=== PATIENT | male | born 1985 | race Caucasian/White ===

== ENCOUNTER 2017-11-16 21:28 | Emergency (ER) | payer BC, OTHER ==
[~2017-11-16] VITALS: Ht 188 cm; Wt 95.3 kg
[2017-11-16] MEDS ORDERED: HYDROcodone/APAP 5 MG/325 MG (LORTAB) TAB ONE (21:53)
[2017-11-16] MEDS ORDERED: LIDOCAINE 2% 20 ML (XYLOCAINE) VIAL ONE (21:54)
[2017-11-16] MEDS ORDERED: TRIM/SULFAMETH 160/800 (SEPTRA DS) TAB PO ONE ×2 (21:54→22:30)
[2017-11-16] MEDS ORDERED: HYDR-757 PO (22:27)
[2017-11-16] MEDS ORDERED: SULF1TAB35 PO (22:27)
[2017-11-16] MEDS ORDERED: METR500T PO (22:27)
--- NOTE | 2017-11-16 22:28 | ED Integumentary General ---
General Chief Complaint: Skin/Wound Problems Stated Complaint: ABSCESS LOWER BACK Nursing Triage Note: PT C/O PYLONIDAL CYST X 4 DAYS. PT DENIES FEVER OR ANY OTHER S/S. Source: patient Exam Limitations: no limitations History of Present Illness Date Seen by Provider: Nov 16, 2017 Time Seen by Provider: 22:23 Initial Comments To ER with complaints of abscess to the top of the gluteal cleft for the past 2- 3 days with some drainage. He's never had this before. No fevers or chills. He is a pharmacist at [employer]. Timing/Duration: constant Severity: moderate Allergies and Home Medications Allergies Coded Allergies: No Known Drug Allergies (Unverified , 11/16/17) Constitutional: see HPI EENTM: see HPI Respiratory: no symptoms reported Cardiovascular: no symptoms reported Genitourinary: no symptoms reported Musculoskeletal: no symptoms reported Skin: see HPI Psychiatric/Neurological: No Symptoms Reported Endocrine: No Symptoms Reported Hematologic/Lymphatic: No Symptoms Reported Past Mehjwak-Kwdktr-Malbss Hx Patient Social History Alcohol Use: Occasionally Uses Recreational Drug Use: No Smoking Status: Never a Smoker 2nd Hand Smoke Exposure: No Recent Foreign Travel: No Contact w/Someone Who Travel: No Recent Infectious Disease Expo: No Recent Hopitalizations: No Seasonal Allergies Seasonal Allergies: No Surgeries History of Surgeries: Yes Surgeries: Tonsillectomy Physical Exam Vital Signs Vital Signs - First Documented 11/16/17 21:37 Temp 97.2 Pulse 74 Resp 16 B/P (MAP) 138/79 (98) Pulse Ox 99 O2 Delivery Room Air Capillary Refill : Less Than 3 Seconds General Appearance: WD/WN, no apparent distress HEENT: PERRL/EOMI, normal ENT inspection Neck: non-tender, full range of motion Respiratory: no respiratory distress, no accessory muscle use Gastrointestinal: normal bowel sounds, non tender Neurologic/Psychiatric: alert, normal mood/affect, oriented x 3 Skin: normal color, warm/dry Skin Problem Location: other (superior aspect of the gluteal cleft there is fluctuance with surrounding induration.) Skin Problem Character: abscess I&D : Blade Size: 11 Packing/Drain: 1/2 Ludmila Drain Progress Anesthetized with a total of 1 mL of 2% lidocaine without epinephrine. Wound then opened with an 11 blade scalpel. Large amount of foul-smelling purulent material expressed. He then irrigated with Betadine/saline solution. And a Salem drain 1/4 inch was placed and sutured in place with a single suture size 4-0 Prolene. Covered with gauze. Progress/Results/Core Measures Results/Orders My Orders Orders - ASHUTOSH MEYER APRN Hydrocodone/Apap 5/325 Tablet (Lortab 5 (11/16/17 21:53) Sulfamethoxazole/Trimet Ds Tab (Bactrim (11/16/17 21:54) Lidocaine 2% Injection 20 Ml (Xylocaine (11/16/17 21:54) Wound Culture (11/16/17 22:21) Sulfamethoxazole/Trimet Ds Tab (Bactrim (11/16/17 22:30) Metronidazole Tablet (Flagyl Tablet) (11/16/17 22:30) Hydrocodone/Apap 5/325 Tablet (Lortab 5 (11/16/17 22:30) Lidocaine 2% Injection 20 Ml (Xylocaine (11/16/17 22:30) Medications Given in ED Current Medications Medications Dose Ordered Sig/Aurea Route Start Time Stop Time Status Last Admin Dose Admin Acetaminophen/ Hydrocodone Bitart 1 tab STK-MED ONCE .ROUTE 11/16/17 21:53 11/16/17 21:56 DC 11/16/17 22:17 1 TAB Lidocaine HCl 20 ml STK-MED ONCE .ROUTE 11/16/17 21:54 11/16/17 21:57 DC 11/16/17 22:10 20 ML Trimethoprim/ Sulfamethoxazole 1 ea STK-MED ONCE PO 11/16/17 21:54 11/16/17 21:56 DC 11/16/17 22:17 1 EA Vital Signs/I&O Vital Sign - Last 12Hours 11/16/17 21:37 Temp 97.2 Pulse 74 Resp 16 B/P (MAP) 138/79 (98) Pulse Ox 99 O2 Delivery Room Air Blood Pressure Mean: 98 Departure Impression Impression: Primary Impression: Pilonidal sinus with abscess Disposition: 01 HOME, SELF-CARE Condition: Stable Departure-Patient Inst. Decision time for Depature: 22:25 Referrals: LAUREL ROSARIO MD (PCP/Family) Primary Care Physician SHAMIKA LIEBERMAN MD Patient Instructions: Pilonidal Cyst Add. Discharge Instructions: 1. Antibiotics as directed 2. Pain medication as a 3. You may shower with the drain in place. Return to the emergency room in about 5 days to have the Salem drain stitch clipped and the drain removed. Expect to have some continued drainage over the next couple of days which should reduce day by day. Return to ER for any fevers or sign of worsening infection. If your culture indicates need for different antibiotic we would call you in that antibiotic. All discharge instructions reviewed with patient and/or family. Voiced understanding. Scripts Hydrocodone/Acetaminophen ([place] 5-325 Tablet) 1 Each Tablet 1 EACH PO Q4H Y for PAIN-MODERATE TO SEVERE, #20 TAB Prov: ASHUTOSH MEYER APRN 11/16/17 Metronidazole (Flagyl) 500 Mg Tablet 500 MG PO TID, #21 TAB Prov: ASHUTOSH MEYER APRN 11/16/17 Sulfamethoxazole/Trimethoprim (Bactrim Ds Tablet) 1 Each Tablet 1 EACH PO BID, #14 TAB Prov: ASHUTOSH MEYER APRN 11/16/17 Copy Copies To 1: LAUREL ROSARIO MD; SHAMIKA LIEBERMAN MD, PETER J APRN Nov 16, 2017 22:28
[2017-11-16] MEDS ORDERED: metroNIDAZOLE 500 MG (FLAGYL) TAB PO ONE (22:30)
[2017-11-16] MEDS ORDERED: LIDOCAINE 2% 20 ML (XYLOCAINE) VIAL INJ ONE (22:30)
[2017-11-16] MEDS ORDERED: HYDROcodone/APAP 5 MG/325 MG (LORTAB) TAB PO ONE (22:30)
[2017-11-16 22:35] VITALS: BP 138/79
== END 2017-11-16 22:35 | disposition home or self-care (01) ==
LOC: ER 21:32
DX: L05.01 Pilonidal cyst with abscess (principal); Z90.89 Acquired absence of other organs
CPT/HCPCS: 87070; 87205

== ENCOUNTER 2017-11-21 16:16 | Emergency (ER) | payer BC ==
[~2017-11-21] VITALS: Ht 188 cm; Wt 123.4 kg
[~2017-11-21 16:16] MED LIST: HYDR-757 PO; METR500T PO; SULF1TAB35 PO
--- NOTE | 2017-11-21 16:43 | ED Suture Removal/Wound Check ---
Suture/Wound Re-check General Appearance: WD/WN, no apparent distress Skin Exam: normal color, warm/dry Physical Exam Vital Signs Vital Signs - First Documented 11/21/17 16:30 Pulse 78 Resp 18 B/P (MAP) 134/89 Pulse Ox 98 Capillary Refill : General Appearance: WD/WN, no apparent distress HEENT: PERRL/EOMI, normal ENT inspection Neck: non-tender, full range of motion Respiratory: no respiratory distress, no accessory muscle use Gastrointestinal: normal bowel sounds, non tender Extremities: normal range of motion, non-tender Neurologic/Psychiatric: alert, normal mood/affect Skin: normal color, warm/dry Skin Problem Character: abscess, other (there is a Ludmila drain in place to the superior aspect gluteal cleft. There is a bit of serosanguineous drainage from this still. The suture was clipped that was holding the Ludmila in place, Ludmila was removed and covered with gauze. No erythema to suggest cellulitis.) Departure Impression Impression: Primary Impression: Pilonidal cyst with abscess Disposition: 01 HOME, SELF-CARE Condition: Stable Departure-Patient Inst. Decision time for Depature: 16:43 Referrals: LAUREL ROSARIO MD (PCP/Family) Primary Care Physician Patient Instructions: Pilonidal Cyst Add. Discharge Instructions: 1. Return to ER for any concerns 2. Follow-up with your doctor next week All discharge instructions reviewed with patient and/or family. Voiced understanding. ASHUTOSH MEYER APRN Nov 21, 2017 16:43
[2017-11-21 16:45] VITALS: BP 134/89
== END 2017-11-21 16:45 | disposition home or self-care (01) ==
LOC: EDUNIT# 16:16 → ER 16:17
DX: L05.01 Pilonidal cyst with abscess (principal)

== ENCOUNTER 2017-12-31 05:35 | Outpatient (CLI) | payer BC ==
[~2017-12-31] VITALS: Ht 188 cm; Wt 123.4 kg
[2017-12-31] MEDS ORDERED: MULT-35 PO (11:11)
[2017-12-31] MEDS ORDERED: VITA1CAP PO (11:11)
== END 2017-12-31 11:12 ==
LOC: PREOP 05:35
PROVIDERS: ATTEND Surgery
DX: Z01.818 Encounter for other preprocedural examination (principal); L05.91 Pilonidal cyst without abscess

== ENCOUNTER 2018-01-09 06:36 | Day surgery (SDC) | payer BC ==
[~2018-01-09] VITALS: Ht 188 cm; Wt 123.4 kg
[~2018-01-09 06:36] MED LIST changes: +MULT-35 PO; +VITA1CAP PO
[2018-01-09] MEDS ORDERED: ceFAZolin INJECTION 1,000 MG in NS (IVPB) 100 ML IV ONE (06:45)
[2018-01-09 06:50] VITALS: BP 125/83
[2018-01-09] MEDS ORDERED: LACTATED RINGERS 1,000 ML IV PRN (07:06)
[2018-01-09] MEDS ORDERED: ONDANSETRON 4 MG/2 ML (SDV) Z0FRAN ONE ×2 (07:15→08:22)
[2018-01-09] MEDS ORDERED: FAMOTIDINE 20MG/2ML IV (PEPCID) IV ONE (07:15)
[2018-01-09] MEDS ORDERED: ONDANSETRON 4 MG/2 ML (SDV) Z0FRAN IV ONE (07:15)
[2018-01-09] MEDS ORDERED: FAMOTIDINE 20MG/2ML IV (PEPCID) ONE (07:16)
[2018-01-09] MEDS: LACTATED RINGERS 1,000 ML IV PRN ×2 (07:29→09:30)
[2018-01-09] MEDS ORDERED: BUP/EPI 0.5% 1:200,000 (SENSORCAINE) 30 ML VIAL ONE (07:38)
--- NOTE | 2018-01-09 07:51 | Progress Note-Pre Operative ---
Pre-Operative Progress Note H&P Reviewed The H&P was reviewed, patient examined and no changes noted. Date Seen by Provider: Jan 09, 2018 Time Seen by Provider: 07:40 Date H&P Reviewed: Jan 09, 2018 Time H&P Reviewed: 07:45 Pre-Operative Diagnosis: Pilonidal Cyst TANISHA ESTRADA APRN Jan 09, 2018 7:51 am
[2018-01-09] MEDS ORDERED: morphine INJ 10 MG/ML 1ML (SYR OR VIAL) IVP PRN ×2 (08:00→10:45)
[2018-01-09] MEDS ORDERED: ONDANSETRON 4 MG/2 ML (SDV) Z0FRAN IVP PRN ×2 (08:00→10:45)
[2018-01-09] MEDS ORDERED: HYDROcodone/APAP 5 MG/325 MG (LORTAB) TAB PO ONE (08:00)
[2018-01-09] MEDS ORDERED: ACETAMINOPHEN 325 MG TABLET PO PRN (08:00)
[2018-01-09] MEDS ORDERED: LIDOCAINE PF 2% 5 ML (XYLOCAINE) VIAL ONE (08:22)
[2018-01-09] MEDS ORDERED: NEOSTIGMINE 1 MG/ML 5 ML SYRINGE ONE ×2 (08:22→10:04)
[2018-01-09] MEDS ORDERED: DEXAMETHASONE 10 MG/ML (DECADRON) 1 ML VIAL ONE (08:22)
[2018-01-09] MEDS ORDERED: ROCURONIUM 10 MG/ML 5 ML SYRINGE IV ONE (08:22)
[2018-01-09] MEDS ORDERED: SEVOFLURANE (ULTANE) 15 ML INHAL SOLN ONE (08:22)
[2018-01-09] MEDS ORDERED: proPOfol 200 MG/20 ML (DIPRIVAN) VIAL IV ONE (08:22)
[2018-01-09] MEDS ORDERED: GLYCOPYRROLATE 0.2 MG/ML (ROBINUL) 2 ML VIAL ONE ×2 (08:22→10:04)
[2018-01-09] MEDS ORDERED: MIDAZOLAM 2 MG/2 ML (VERSED) VIAL ONE (08:23)
[2018-01-09] MEDS ORDERED: fentaNYL INJECTION 250 MCG/5 ML AMP ONE (08:23)
[2018-01-09] MEDS ORDERED: BUP/EPI 0.5% 1:200,000 (SENSORCAINE) 30 ML VIAL INJ ONE (09:45)
--- NOTE | 2018-01-09 10:26 | Progress Note-Post Operative ---
Post-Operative Progess Note Surgeon (s)/Painter [employer] (s) Surgeon JOAQUINA CHEATHAM MD Painter Structural Steel: reji puentes LAY OUT FORMER Pre-Operative Diagnosis Pilonidal Cyst Post-Operative Diagnosis sane Procedure & Operative Findings Date of Procedure 01/09/18 Procedure Performed/Findings excision pilonidal cyst with intermediate flap closure. Anesthesia Type GET Estimated Blood Loss Estimated blood loss (mL): minimal Specimens/Packing Specimens Removed pilonidal cyst JOAQUINA CHEATHAM MD Jan 09, 2018 10:26 am
[2018-01-09] MEDS ORDERED: HYDR-34 PO (10:27)
--- NOTE | 2018-01-09 10:28 | Discharge Inst-Surgical ---
D/C Lap Instructions-CHAPARRITA New, Converted, or Re-Newed RX: RX on Chart Follow Up Appt in 2 weeks Activity as tolerated No driving for 24 hours No driving while on pain medications Incentive Spirometry use every 2 hours while awake Regular Diet Symptoms to Report: Fever over 101 degree F, Nausea/Vomiting Infection Signs and Symptoms to report: Increased redness, Foul odor of wound, Increased drainage Bathing instructions: May shower Operative Area Clean/Dry; Keep incision clean/dry If any problems/questions: Contact your physician or go to Emergency Room JOAQUINA CHEATHAM MD Jan 09, 2018 10:28 am
--- NOTE | 2018-01-09 10:40 | Anesthesia-General Post-Op ---
General Patient Condition Mental Status/LOC: Same as Preop Cardiovascular: Satisfactory Nausea/Vomiting: Absent Respiratory: Satisfactory Pain: Controlled Complications: Absent Post Op Complications Complications None Follow Up Care/Instructions Patient Instructions None needed. Anesthesia/Patient Condition Patient Condition Patient is doing well, no complaints, stable vital signs, no apparent adverse anesthesia problems. No complications reported per nursing. D/C home per [facility] Criteria: No JOLIE SIU CRNA Jan 09, 2018 10:40
[2018-01-09] MEDS ORDERED: HYDROmorphone 2 MG/ML VIAL (DILAUDID) IVP PRN (10:45)
[2018-01-09 11:30] VITALS: BP 118/82
[2018-01-09] MEDS ORDERED: HYDROcodone/APAP 5 MG/325 MG (LORTAB) TAB ONE (11:47)
[2018-01-09 12:00] VITALS: BP 113/76
[2018-01-09 12:30] VITALS: BP 109/76
--- NOTE | 2018-01-09 12:45 | Anesthesia-General Post-Op ---
General Patient Condition Mental Status/LOC: Same as Preop Cardiovascular: Satisfactory Nausea/Vomiting: Absent Respiratory: Satisfactory Pain: Controlled Complications: Absent Post Op Complications Complications None Follow Up Care/Instructions Patient Instructions None needed. Anesthesia/Patient Condition Patient Condition Patient is doing well, no complaints, stable vital signs, no apparent adverse anesthesia problems. No complications reported per nursing. D/C home per [facility] Criteria: No JOLIE SIU CRNA Jan 09, 2018 12:45
--- NOTE | 2018-01-09 18:17 | OPERATIVE REPORT ---
DATE OF SERVICE: 01/09/2018 ATTENDING PRIMARY CARE PHYSICIAN: Christin Martinez MD PREOPERATIVE DIAGNOSIS: Symptomatic pilonidal cyst. POSTOPERATIVE DIAGNOSIS: Symptomatic pilonidal cyst. PROCEDURE: Excision of complex pilonidal cyst with intermediate flap reconstruction 4 cm in size. SURGEON: Joaquina Cheatham MD DIRECTOR ORANGE: Abhijeet Burton APRN ANESTHESIA: General endotracheal. ESTIMATED BLOOD LOSS: Minimal. FINDINGS: Multiple small tracts, which were deep within the overlying the sacrum. No acute infection. DISPOSITION: The patient tolerated procedure well. INDICATIONS: The patient is a 32-year-old male, who reports that he has had pain and swelling in the intergluteal cleft for several years; however, in the past few months, he has had a significant amount of redness, irritation as well as purulent drainage. The pain and swelling worsened and he was seen in the Emergency Department where an abscess was identified in the intergluteal cleft consistent with a pilonidal abscess. He underwent an incision and drainage at that time and placed on antibiotics. Since that time, the infection is cleared. There are 2 small sinus openings identified consistent with a chronic pilonidal cyst. DESCRIPTION OF PROCEDURE: The patient was brought to the operating room, laid supine on the table. After adequate IV pain sedative medications and general endotracheal intubation, the patient was placed in prone position. The back and perineum were then prepped and draped in standard surgical fashion. DICTATION ENDS HERE. Job ID: [id number] DocumentID: [id number] Dictated Date: 01/09/2018 10:40:26 Computer Science Instructor Date: 01/09/2018 18:15:56 Dictated By: JOAQUINA CHEATHAM MD [facility]
--- NOTE | 2018-01-09 19:05 | OPERATIVE REPORT ---
DATE OF SERVICE: 01/09/2018 CONTINUATION OF AN OPERATIVE REPORT DESCRIPTION OF PROCEDURE: The pilonidal fistulous tracts were probed using lacrimal probes and met in the center overlying the sacrum, which was relatively deep. A skin incision approximately 4 cm in size was then measured out off center. The area was then anesthetized using 0.5% Marcaine with epinephrine. A skin incision was made using a 15 blade and the entire cyst tracts as well as the pilonidal abscess where the lacrimal probes ended overlying the sacrum were then completely dissected out using blunt dissection as well as electrocautery until all clean subcutaneous fat and overlying fascia was identified. This was sent to pathology. Good hemostasis was observed. We then proceeded with a lateral flap creation using electrocautery. The fascial subcutaneous flap was then reapproximated using 2-0 Vicryl interrupted sutures. Subcutaneous tissue underneath the dermis was then approximated using 3-0 Vicryl interrupted sutures. Skin was then closed using 3-0 nylon interrupted sutures. The wound was then cleaned and covered with sterile gauze. The patient tolerated the procedure well. We will start IV and oral pain medication as well as a clear liquid diet. Once he is tolerating clears, has good pain control with oral pain medications and is ambulating well, we will discharge him home. He will be instructed to do no heavy lifting or exertion for the next two weeks and to keep the area clean and dry at all times. Job ID: [id number] DocumentID: [id number] Dictated Date: 01/09/2018 10:43:58 Molder Sweep Date: 01/09/2018 19:04:58 Dictated By: JOAQUINA CHEATHAM MD
== END 2018-01-09 12:50 | disposition home or self-care (01) ==
LOC: SDC 06:36
PROVIDERS: ATTEND Surgery
DX: L05.91 Pilonidal cyst without abscess (principal); Z79.82 Long term (current) use of aspirin
CPT/HCPCS: 87081; 88304

== ENCOUNTER 2021-11-04 01:17 | Emergency (ER) | payer BC ==
[~2021-11-04] VITALS: Ht 185 cm; Wt 120.0 kg
[~2021-11-04 01:17] MED LIST changes: +HYDR-34 PO; +HYDR-4226 PO; -HYDR-757 PO; -SULF1TAB35 PO; +SULF1TAB38 PO
[2021-11-04] MEDS ORDERED: ONDANSETRON 4 MG (ZOFRAN) ORAL DISSOLVE TAB SL STA (01:34)
[2021-11-04 01:52] LABS: CLARITY,URINE CLEAR; COLOR,URINE YELLOW; GLUCOSE, URINE (UA) NEGATIVE (NEGATIVE); KETONES,URINE NEGATIVE (NEGATIVE); LEUKOCYTE ESTERASE ,URINE NEGATIVE (NEGATIVE); NITRITE,URINE NEGATIVE (NEGATIVE); PROTEIN,URINE 1+ (NEGATIVE)
[2021-11-04 01:54] LABS: BACTERIA,URINE TRACE /HPF; BILIRUBIN,URINE NEGATIVE (NEGATIVE); RBC,URINE 25-50 /HPF; WBC,URINE 0-2 /HPF
[2021-11-04] MEDS ORDERED: LACTATED RINGERS 1,000 ML IV ONE (02:00)
[2021-11-04] MEDS ORDERED: KETOROLAC 30 MG/ML VIAL IVP ONE (02:00)
[2021-11-04 02:20] LABS: HEMATOCRIT 43 % (40-54); MEAN CORPUSCULAR HEMOGLOBIN 30 pg (25-34); MEAN CORPUSCULAR HGB CONC 35 g/dL (32-36); MEAN CORPUSCULAR VOLUME 87 fL (80-99); MEAN PLATELET VOLUME 10.5 fL (9.0-12.2); PLATELET COUNT 274 10^3/uL (130-400); WHITE BLOOD COUNT 11.4 10^3/uL (4.3-11.0)
[2021-11-04 02:28] LABS: POTASSIUM 3.7 MMOL/L (3.6-5.0)
[2021-11-04 02:29] LABS: CALCIUM 9.5 MG/DL (8.5-10.1)
[2021-11-04 02:33] LABS: CREATININE SERUM 0.93 MG/DL (0.60-1.30)
[2021-11-04] MEDS ORDERED: ACHD5005 PO (02:55)
[2021-11-04] MEDS ORDERED: ONDA4TAB11 SL (02:55)
--- NOTE | 2021-11-04 02:55 | ED Back Pain ---
General Chief Complaint: Back Problems Stated Complaint: LEFT SIDE BACK PAIN Nursing Triage Note: PT AMB TO ED BY POV WITH C/O MIDDLE/LOWER LEFT SIDED BACK PAIN BEGINNING 2300 TONIGHT. PT REPORTS HE WENT TO BED APPROX 2200, WOKE UP AT 2300 WITH LEFT SIDED BACK PAIN. PAIN WORSE WITH MOVEMENT, DOES NOT RADIATE. RATES PAIN 5/10, 7-8/10 WITH MOVEMENT. DENIES FEVER, INJURY, PAIN OR DIFFICULTY URINATING. HAS NOT TAKEN ANYTHING FOR PAIN. Source of Information: Patient Exam Limitations: No Limitations History of Present Illness Date Seen by Provider: Nov 04, 2021 Time Seen by Provider: 01:30 Initial Comments This 36-year-old gentleman presents to the emergency room with left lower back pain that woke him around 2300. He has associated nausea. Pain does not radiate to any other area. He has nausea without vomiting. He denies any history of kidney stones or prior episodes of this type of pain. Pain is waxing and waning and does seem to be somewhat dependent upon position. He has not noted any urinary changes. Allergies and Home Medications Allergies Coded Allergies: No Known Drug Allergies (Unverified , 12/31/17) Patient Home Medication List Home Medication List Reviewed: Yes Hydrocodone Bit/Acetaminophen (Lortab 7.5 Mg Tablet) 1 Ea Tablet, 1-2 EACH PO Q4H Prescribed by: JOAQUINA CHEATHAM on 01/09/18 1027 Hydrocodone/Acetaminophen (Hydrocodone-Acetamin 5-325 mg) 1 Each Tablet, 1 TAB PO Q4H PRN for PAIN-MODERATE (5-7) Prescribed by: ELISHA HUMPHREY on 11/04/21 0256 Multivitamin (Daily Multiple Vitamin) 1 Each Tablet, 1 EACH PO DAILY, (Reported) Entered as Reported by: BUCKY COSTA on 12/31/17 1111 Ondansetron (Ondansetron Odt) 4 Mg Tab.rapdis, 4 MG SL Q4H PRN for NAUSEA/VOMITING Prescribed by: ELISHA HUMPHREY on 11/04/21 0255 Vitamin B Complex (Vitamin B Complex) 1 Each Capsule, 1 EACH PO BIDPC, (Reported) Entered as Reported by: BUCKY COSTA on 12/31/17 1111 Review of Systems Constitutional: no symptoms reported EENTM: no symptoms reported Respiratory: no symptoms reported Cardiovascular: no symptoms reported Gastrointestinal: see HPI Genitourinary: see HPI Musculoskeletal: see HPI Skin: no symptoms reported Psychiatric/Neurological: No Symptoms Reported Past Hsoeotz-Rseqrt-Tlxkuv Hx Patient Social History Tobacco Use?: No Use of E-Cig and/or Vaping dev: No Substance use?: No Alcohol Use?: Yes Alcohol type: Beer Alcohol Frequency: Couple times a week Pt feels they are or have been: No Immunizations Up To Date Tetanus Booster (TDap): Unknown PED Vaccines UTD: No Influenza Vaccine Up-to-Date: Yes; Up-to-Date First/Initial COVID19 Vaccinat: 2020 Second COVID19 Vaccination Gerry: 2020 Third COVID19 Vaccination Date: AUG 2021 COVID19 Vaccine Primer Inserting Machine Operator: Kup[place] Seasonal Allergies Seasonal Allergies: No Past Medical History Surgery/Hospitalization HX: HTN Surgeries: Yes (Pilonidal cyst resection) Tonsillectomy Respiratory: No Cardiac: Yes Hypertension Neurological: No Reproductive Disorders: No Sexually Transmitted Disease: No HIV/AIDS: No Genitourinary: No Gastrointestinal: No Musculoskeletal: No Endocrine: No HEENT: No Loss of Vision: Bilateral Hearing Impairment: Denies Cancer: No Psychosocial: No Integumentary: No Adverse Reaction/Blood Tranf: No (N/A) Family Medical History Cancer (sister, renal cell carcinoma) Physical Exam Vital Signs Vital Signs - First Documented 11/04/21 01:24 Temp 36.5 Pulse 80 Resp 18 B/P (MAP) 158/101 (120) Pulse Ox 100 O2 Delivery Room Air Capillary Refill : Less Than 3 Seconds Height, Weight, BMI Height: 6'2.00" Weight: 272lbs. 0.0oz. 123.608777kq; 35.00 BMI Method:Stated General Appearance: No Apparent Distress, WD/WN, Obese HEENT: Normal ENT Inspection Neck: Normal Inspection Cardiovascular: Regular Rate, Rhythm, No Edema, No Murmur Respiratory: Lungs Clear, Normal Breath Sounds, No Accessory Muscle Use Gastrointestinal: Non Tender, Soft Back: Normal Inspection, Other (Slight tenderness just lateral to the left upper lumbar spine) Extremity: Normal Inspection, No Pedal Edema Neurologic/Psychiatric: Alert, Oriented x3, Normal Mood/Affect Skin: Normal Color, Warm/Dry Progress/Results/Core Measures Results/Orders Lab Results Laboratory Tests Test 11/04/21 01:28 11/04/21 02:05 Range/Units Urine Color YELLOW Urine Clarity CLEAR Urine pH 6.0 5-9 Urine Specific Palms >=1.030 1.016-1.022 Urine Protein 1+ H NEGATIVE Urine Glucose (UA) NEGATIVE NEGATIVE Urine Ketones NEGATIVE NEGATIVE Urine Nitrite NEGATIVE NEGATIVE Urine Bilirubin NEGATIVE NEGATIVE Urine Urobilinogen 0.2 < = 1.0 MG/DL Urine Leukocyte Esterase NEGATIVE NEGATIVE Urine RBC (Auto) 3+ H NEGATIVE Urine RBC 25-50 H /HPF Urine WBC 0-2 /HPF Urine Squamous Epithelial Cells NONE /HPF Urine Crystals NONE /LPF Urine Bacteria TRACE /HPF Urine Casts NONE /LPF Urine Mucus LARGE H /LPF Urine Culture Indicated NO White Blood Count 11.4 H 4.3-11.0 10^3/uL Red Blood Count 5.01 4.30-5.52 10^6/uL Hemoglobin 15.0 13.3-17.7 g/dL Hematocrit 43 40-54 % Mean Corpuscular Volume 87 80-99 fL Mean Corpuscular Hemoglobin 30 25-34 pg Mean Corpuscular Hemoglobin Concent 35 32-36 g/dL Red Cell Distribution Width 12.7 10.0-14.5 % Platelet Count 274 130-400 10^3/uL Mean Platelet Volume 10.5 9.0-12.2 fL Sodium Level 142 135-145 MMOL/L Potassium Level 3.7 3.6-5.0 MMOL/L Chloride Level 105 98-107 MMOL/L Carbon Dioxide Level 24 21-32 MMOL/L Anion Gap 13 5-14 MMOL/L Blood Urea Nitrogen 13 7-18 MG/DL Creatinine 0.93 0.60-1.30 MG/DL Estimat Glomerular Filtration Rate 108 BUN/Creatinine Ratio 14 Glucose Level 114 H 70-105 MG/DL Calcium Level 9.5 8.5-10.1 MG/DL My Orders Orders - ELISHA VERMA MD Ondansetron Oral Dissolve Tab (Zofran (11/04/21 01:34) Ua Culture If Indicated (11/04/21 01:34) Basic Metabolic Panel (11/04/21 01:56) Cbc No Diff (11/04/21 01:56) Ed Iv/Invasive Line Start (11/04/21 01:56) Lactated Ringers (Lr 1000 Ml Iv Solution (11/04/21 02:00) Ketorolac Injection (Toradol Injection) (11/04/21 02:00) Ct Abd/Pelvis Wo(Kidney Stone) (11/04/21 02:01) Abdomen/Kub 1view (11/04/21 02:57) Medications Given in ED Current Medications Medications Dose Ordered Sig/Aurea Route Start Time Stop Time Status Last Admin Dose Admin Ketorolac Tromethamine 30 mg ONCE ONCE IVP 11/04/21 02:00 11/04/21 02:01 DC 11/04/21 02:08 30 MG Lactated Ringer's 1,000 ml @ 0 mls/hr Q0M ONCE IV 11/04/21 02:00 11/04/21 02:01 DC 11/04/21 02:08 0 MLS/HR Vital Signs/I&O 11/04/21 11/04/21 01:24 03:37 Temp 36.5 Pulse 80 83 Resp 18 18 B/P (MAP) 158/101 (120) 138/91 Pulse Ox 100 100 O2 Delivery Room Air Room Air Blood Pressure Mean: 120 Progress Progress Note : Progress Note Patient was initially treated with sublingual Zofran. Hematuria was noted on urinalysis and further work-up was pursued with labs. He was given Toradol and IV fluids for further management of symptoms. We discussed the possibility of imaging with CT scan. Risks and benefits were reviewed. Patient elects to proceed with CT imaging, particularly because he has a family history of renal cell carcinoma. CT scan revealed a small stone at the left UVJ. Diagnostic Imaging Diagonstic Imaging: CT Plain Films/CT/US/NM/MRI: abdomen, pelvis Comments CT abdomen pelvis viewed by me stat rad report pending at the time of discharge. There appeared to be a tiny stone in the left UVJ without significant obstruction. Diagonstic Imaging: Xray Plain Films/CT/US/NM/MRI: abdomen, pelvis Comments Tiny calcification was seen in the left pelvis consistent with the stone visualized on CT scan. X-ray was reviewed by me and report not yet available. Departure Impression Primary Impression: Left ureteral stone Disposition: 01 HOME, SELF-CARE Condition: Improved Departure-Patient Inst. Decision time for Depature: 02:45 Referrals: LAUREL ROSARIO MD (PCP/Family) Primary Care Physician MALIK SAMUELS MD Patient Instructions: Kidney Stones in Adults Add. Discharge Instructions: Drink plenty of clear liquids to stay well-hydrated. You may treat pain with ibuprofen up to 600 mg every 6 hours as needed. Add either Tylenol or hydrocodone as prescribed for pain not controlled by ibuprofen. Use Zofran as prescribed for nausea and vomiting. Strain your urine and present any stones passed to your doctor at your follow-up appointment. If you are not passing the stone after 2 weeks, you will need to follow-up with a urologist. Dr. Samuels's contact information is below. Call with questions or concerns. Return to the ER if you have worsening symptoms. All discharge instructions reviewed with patient and/or family. Voiced understanding. Scripts Hydrocodone/Acetaminophen (Hydrocodone-Acetamin 5-325 mg) 1 Each Tablet 1 TAB PO Q4H PRN for PAIN-MODERATE (5-7), #10 TAB Prov: ELISHA VERMA MD 11/04/21 Ondansetron (Ondansetron Odt) 4 Mg Tab.rapdis 4 MG SL Q4H PRN for NAUSEA/VOMITING, #10 TAB Prov: ELISHA VERMA MD 11/04/21 Copy Copies To 1: LAUREL ROSARIO MD Copies To 2: MALIK SAMUELS MD, JOSHUA T MD Nov 04, 2021 02:54
[2021-11-04 03:37] VITALS: BP 138/91
--- NOTE | 2021-11-04 06:38 | Diagnostic Imaging Report ---
PROCEDURE: CT urinary tract, rule out kidney stone. TECHNIQUE: Multiple contiguous axial images were obtained through the abdomen and pelvis without the use of intravenous contrast. Auto Exposure Controls were utilized during the CT exam to meet ALARA standards for radiation dose reduction. INDICATION: Left flank pain, microhematuria COMPARISON: Radiographs from the same date FINDINGS: The visualized lung bases are clear. The unenhanced liver and spleen are unremarkable. The gallbladder is predominantly decompressed, though otherwise unremarkable. The adrenal glands are unremarkable. The pancreas is unremarkable. The right kidney and right ureter are unremarkable. A tiny 2 mm calculus is identified within the left ureterovesicular junction with minimal prominence of the left ureter. The left kidney is otherwise unremarkable. No aneurysmal dilatation of the abdominal aorta. The appendix is unremarkable. Small fat-containing right inguinal hernia. The urinary bladder is predominantly decompressed. Mural thickening of the urinary bladder is noted. No bowel obstruction or pneumatosis. No significant adenopathy, free air, or free fluid within the abdomen or pelvis. Scattered osseous degenerative changes without acute osseous abnormality. Peripherally calcified disc bulge identified at L5/S1 with resulting at least mild central canal stenosis. IMPRESSION: A 2 mm calculus within the left ureterovesicular junction resulting in very slight prominence of the left ureter. Mural thickening of the urinary bladder, favored to relate to poor distention, cystitis not excluded. Additional findings as described above. Agree with preliminary interpretation. Dictated by: Dictated on workstation # [id number]
--- NOTE | 2021-11-04 07:06 | Diagnostic Imaging Report ---
Indication: Abdominal pain, history of kidney stones. Comparison: None. Discussion: Two views of the abdomen were obtained. Unremarkable bowel gas pattern. No pathologic calcification identified over either renal bed. No osseous abnormality. Impression: 1. Unremarkable bowel gas pattern. No renal stone identified by plain film. Dictated by: Dictated on workstation # [id number]
== END 2021-11-04 03:37 | disposition home or self-care (01) ==
LOC: EDUNIT# 01:17 → ER 01:20
DX: N20.1 Calculus of ureter (principal); I10 Essential (primary) hypertension; E66.9 Obesity, unspecified; Z68.35 Body mass index [BMI] 35.0-35.9, adult
CPT/HCPCS: 36415; 74018; 74176; 80048; 81000; 85027